=== PATIENT | male | born 1960 | race Two or more races ===

== ENCOUNTER 2024-01-01 16:14 | Outpatient (REF) | payer MEDICAID, SELFPAY | END 2024-01-01 16:15 | disposition home or self-care (01) | LOC: HO.HOSX 16:14 | PROVIDERS: Visit Provider Physician Assistant | DX: Z13.89 Encounter for screening for other disorder (principal) ==

== ENCOUNTER 2024-01-02 08:19 | Outpatient (AMB) | payer MEDICAID, SELFPAY ==
--- NOTE | 2024-01-02 08:30 | A.OFFVIS_ITS ---
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 Patient reports having shoulder pain for quite some time. He has tried and failed PT in the past. He has received injections in the past, however they are no longer providing him with relief. Finds no relief with naproxen. He has constant pain in his shoulder as well as numbness and tingling. States his arm gets stuck and he will have to use his other arm to pull his arm out in extension. He would like to discuss possible surgical intervention. Denies injury. 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 He has not had shoulder injury in the past. He currently states he has constant pain as well as numbness and tingling in his shoulder that radiates down to his arm. His pain is aggravated with movement and sleeping at night. He also reports his arm gets stuck and he will have to use his other arm to pull his arm out in extension. He has tried physical therapy in the past with no relief. He also had injections in the past which no longer provides him relief. He finds no relief with naproxen or icing. He would like to discuss possible surgical intervention. [facility] Social History (Updated 01/02/24 @ 08:34 by YANI Chavira) Patient Tobacco Use Status: Never used Tobacco Substance Use Type: Marijuana Current occupational status: disabled Current occupation: right hand dominant Review of Systems Const All systems reviewed & are unremarkable except as noted in HPI and below Physical Exam Vital Signs: BMI result Body Mass Index 34.6 Const General: cooperative, healthy appearing, comfortable, no acute distress, well developed and alert Orientation/consciousness: patient oriented x3 HEENT Head: Yes normal to inspection, Yes normocephalic and Yes atraumatic Eyes General: appearance normal, both eyes and all related structures Resp Effort & Inspection: normal respiratory effort and able to speak in complete sentences Cardio Rate: regular rate Peripheral pulses: Peripheral pulses 2+ throughout GI Palpation (GI): Soft to palpation Skin Lesions: no lesions Rashes: no rashes Neuro General: patient oriented x3 Extrem Other: Left shoulder: Normal to inspection. Tenderness over the bicipital groove and along the deltoid region of the shoulder. Forward flexion to 90, external rotation to 90, internal rotation to S1. Significant discomfort with RTC strength. Negative Tomlinson and cross body abduction. NVI. ? Results Reviewed Results Reviewed: Xrays were obtained in the office today and personally reviewed by me of the left shoulder show severe oa left shoulder with osteophyte formation Assessment & Plan Assessment & Plan (1) Osteoarthritis of left shoulder: Code(s): M19.012 - Primary osteoarthritis, left shoulder Category: Medical Qualifiers: Osteoarthritis type: primary Qualified Code(s): M19.012 - Primary osteoarthritis, left shoulder Plan We discussed options today which include MRI of the left shoulder to further evaluate the integrity of RTC which was ordered today. We briefly discussed the option of shoulder arthroplasty moving forward. 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 We also explained he would not be able to lift objects overhead which he states he does not perform. Once the MRI is complete, he will see us back with Dr. Ramos to further discuss his options which he is content with. Orders: Orders XR shoulder LT min 2V Today Imelda Borrero PA-C M25.512 - Pain in left shoulder MR shoulder LT wo con Today Carmelo Bazzi PA-C S46.009A - Unspecified injury of muscle(s) and tendon(s) of the rotator cuff of unspecified shoulder, initial encounter Patient Instructions: Scribed for Carmelo Bazzi PA-C, by Asaf Gage medical doctor nuclear medicine, on 01/02/2024 at 8:30 AM EST.? I, Carmelo Bazzi PA-C, have personally reviewed and agree with the information entered by the scribe. Coding Level of Care Code New Pt Level 3 (97194) Complex EM visit Add On G2211 Diagnoses Primary osteoarthritis of left shoulder M19.012 Osteoarthritis type: primary
[2024-01-02 08:32] VITALS: BMI 34.6
== END 2024-01-02 09:05 | disposition home or self-care (01) ==
LOC: HO.HOS 08:19
PROVIDERS: PCP Nurse Practitioner Family; Visit Provider Physician Assistant
DX: M19.012 Primary osteoarthritis, left shoulder (principal)
CPT/HCPCS: 99203

== ENCOUNTER 2024-01-02 08:19 | Outpatient (REF) | payer MEDICAID, SELFPAY | END 2024-01-02 08:20 | disposition home or self-care (01) | LOC: HO.HOSX 08:19 | PROVIDERS: PCP Nurse Practitioner Family; Visit Provider Physician Assistant | DX: M25.512 Pain in left shoulder (principal); M19.012 Primary osteoarthritis, left shoulder | CPT/HCPCS: 73030; 99212 ==